=== PATIENT | female | born 1990 | race Two or more races ===

== ENCOUNTER 2017-02-20 06:33 | Emergency (ER) | payer OTHER ==
[~2017-02-20] VITALS: Ht 165.1 cm; Wt 63.5 kg
[2017-02-20 06:40] VITALS: BP 156/74
[2017-02-20] MEDS ORDERED: diphenhdrAMINE HCL 50 MG/1 ML VL IM ONE (07:30)
[2017-02-20] MEDS ORDERED: KETOROLAC TROMETH 60MG/2ML VIAL IM ONE (07:30)
== END 2017-02-20 09:16 | disposition home or self-care (01) ==
LOC: EDBD 06:33 → ER 06:36
DX: S16.1XXA Strain of muscle, fascia and tendon at neck level, initial encounter (principal); S30.1XXA Contusion of abdominal wall, initial encounter; S20.212A Contusion of left front wall of thorax, initial encounter; V73.5XXA Driver of bus injured in collision with car, pick-up truck or van in traffic accident, initial encounter; Y93.89 Activity, other specified; Y92.89 Other specified places as the place of occurrence of the external cause; Y99.8 Other external cause status
CPT/HCPCS: 71020; 72125; 74176; 81025; 96372; 99284; J1200; J1885